=== PATIENT | male | born 2005 | race Two or more races ===

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

== ENCOUNTER 2025-08-29 03:34 | Emergency (ER) | payer OTHER ==
[~2025-08-29] VITALS: Ht 190.5 cm; Wt 142.0 kg
[2025-08-29 03:36] VITALS: TEMP 97.9
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
[2025-08-29] MEDS: ketorolac trometh 15mg/ml vial 15 MG/ML ML IM ONE (05:37)
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
[2025-08-29 05:51] VITALS: BP 131/70; PULSE 62; RESP 16; O2SAT 98
== END 2025-08-29 05:45 | disposition home or self-care (01) ==
LOC: ER 03:35
DX: S30.11XA Contusion of abdominal wall, initial encounter (principal); S80.01XA Contusion of right knee, initial encounter; V47.5XXA Car driver injured in collision with fixed or stationary object in traffic accident, initial encounter; Y92.410 Unspecified street and highway as the place of occurrence of the external cause; Y93.89 Activity, other specified; Y99.8 Other external cause status
CPT/HCPCS: 71250; 73564; 74176; 96372; 99285; J1885; A6258; A6449